=== PATIENT | male | born 1995 | race African-American/Black ===

== ENCOUNTER 2022-01-15 18:37 | Emergency (ER) | payer SELFPAY ==
[~2022-01-15 18:37] MED LIST: Iopamidol-370 76% 500 ML 1 ML ONE
[2022-01-15 19:37] LABS: #Basophils 0.1 thou/uL (0.0-0.2); #Eosinphils 0.2 thou/uL (0.0-0.7); #Lymphocytes 1.7 thou/uL (1.20-3.40); #Monocytes 0.7 thou/uL (0.11-0.59); #Neutrophils 7.1 thou/uL (1.40-6.50); %Basophils 0.8 % (0.0-1.0); %Monocytes 6.9 % (0.0-10.0); %Neutrophils 73.3 % (42.0-75.0); Mean Corpuscular HGB CONC 32.7 g/dL (32.0-36.0); Mean Platelet Volume 9.2 fL (7.4-10.4); Platelet Count 170 10x3/uL (130-400); RBC Distribution Width 12.6 % (11.5-14.5); Red Blood Cell (RBC) Count 4.23 mill/uL (4.70-6.10); White Blood Cell (WBC) Count 9.7 10x3/uL (4.8-10.8)
[2022-01-15 19:56] LABS: ALT (SGPT) 19 U/L (8-55); AST (SGOT) 21 U/L (5-34); Albumin 4.3 g/dL (3.5-5.0); Alkaline Phosphatase 53 U/L (40-110); Anion Gap 11 mmol/L (10-20); BUN (Urea Nitrogen) 10 mg/dL (8.9-20.6); Bilirubin, Total 0.3 mg/dL (0.2-1.2); Calc. Creatinine Clearance 0 mL/min (70-130); Calcium 9.3 mg/dL (7.8-10.44); Carbon Dioxide 28 mmol/L (22-29); Chloride 104 mmol/L (98-107); Estimated GFR 67; Globulin 2.8 g/dL (2.4-3.5); Glucose 96 mg/dL (70-105); Lipase 29 U/L (8-78); Potassium 3.9 mmol/L (3.5-5.1); Protein, Total 7.1 g/dL (6.0-8.3); Sodium 139 mmol/L (136-145)
[2022-01-15] MEDS ORDERED: Ondansetron PF 4 MG/2 ML Vial ONE (20:19)
[2022-01-15] MEDS ORDERED: FENTANYL 50 MCG/ML 1 ML VIAL ONE (20:19)
[2022-01-15] MEDS ORDERED: Ketorolac Tromethamine 30 MG/ML VIAL ONE (23:23)
[2022-01-15 23:25] LABS: Troponin I 0.015 ng/mL (< 0.028)
== END 2022-01-16 01:45 | disposition home or self-care (01) ==
LOC: ERS 18:37
DX: R07.89 Other chest pain (principal)
CPT/HCPCS: 36415; 71045; 74177; 76705; 80053; 83605; 83690; 84484; 85025; 93005; 96374; 96375; J1885; J2405; J3010; Q9967

== ENCOUNTER 2024-03-20 21:22 | Emergency (ER) | payer OTHER, SELFPAY ==
[2024-03-20] MEDS ORDERED: Ondansetron ODT 4 MG TAB ONE (22:54)
[2024-03-20] MEDS ORDERED: Acetaminophen 500 MG TAB ONE (22:54)
== END 2024-03-21 00:54 | disposition home or self-care (01) ==
LOC: ERS 21:22
DX: B34.9 Viral infection, unspecified (principal)
CPT/HCPCS: 71045; 87428; Q0162